=== PATIENT | female | born 1985 | race Caucasian/White ===

== ENCOUNTER 2022-06-03 09:13 | Emergency (ER) | payer MEDICAID, OTHER ==
[~2022-06-03] VITALS: Ht 154.9 cm; Wt 68.6 kg
[2022-06-03 11:09] VITALS: BP 126/76
[2022-06-03] MEDS ORDERED: IBUP800T27 PO (11:09)
== END 2022-06-03 11:29 | disposition home or self-care (01) ==
LOC: ER 09:13
DX: S83.92XA Sprain of unspecified site of left knee, initial encounter (principal); Z79.1 Long term (current) use of non-steroidal anti-inflammatories (NSAID); W01.0XXA Fall on same level from slipping, tripping and stumbling without subsequent striking against object, initial encounter; Y93.89 Activity, other specified; Y92.89 Other specified places as the place of occurrence of the external cause; Y99.8 Other external cause status
CPT/HCPCS: 73562